=== PATIENT | male | born 1965 | race Two or more races ===

== ENCOUNTER → 2023-01-10 | Emergency (ER) | payer OTHER ==
[~2023-01-10] VITALS: Ht 185.4 cm; Wt 86.2 kg
[~2023-01-10] MED LIST: KETO10TA2 PO; LIPITOR40 M1; TAMS0.4C PO
== END | disposition home or self-care (01) ==
LOC: ER 15:34
DX: N20.1 Calculus of ureter (principal); K57.30 Diverticulosis of large intestine without perforation or abscess without bleeding; I10 Essential (primary) hypertension